=== PATIENT | female | born 1975 | race Caucasian/White ===

== ENCOUNTER 2017-02-05 03:03 | Emergency (ER) | payer MEDICAID ==
[~2017-02-05] VITALS: Ht 160 cm; Wt 71.0 kg
[2017-02-05] MEDS ORDERED: IBUPROFEN 800MG TABLET PO ONE (04:00)
[2017-02-05] MEDS ORDERED: IPRATROPIUM/ALBUTEROL 0.5-3(2.5)MG/3ML NEB HHN ONE (04:00)
[2017-02-05] MEDS ORDERED: PREDNISONE 20MG TABLET PO ONE (04:00)
[2017-02-05] MEDS ORDERED: AZITHROMYCIN 500 MG TABLET PO ONE (04:00)
[2017-02-05 06:30] VITALS: BP 117/63
== END 2017-02-05 06:32 | disposition home or self-care (01) ==
LOC: ER 03:03
DX: J02.9 Acute pharyngitis, unspecified (principal); J40 Bronchitis, not specified as acute or chronic; Z88.0 Allergy status to penicillin
CPT/HCPCS: 71010; 81025; 94640; 99284; J7512; Z7610; J7620

== ENCOUNTER 2019-07-09 16:16 | Observation (INO) | payer MEDICAID ==
[~2019-07-09] VITALS: Ht 157.5 cm; Wt 77.1 kg
== END 2019-07-09 18:30 | disposition home or self-care (01) ==
LOC: 8 EST LDRP 16:16
PROVIDERS: ADMIT Specialist; ATTEND Specialist
DX: O36.8130 Decreased fetal movements, third trimester, not applicable or unspecified (principal); Z3A.36 36 weeks gestation of pregnancy
CPT/HCPCS: 76815; 76818; 99281; G0378

== ENCOUNTER 2019-12-05 10:02 | Emergency (ER) | payer OTHER ==
[~2019-12-05] VITALS: Ht 157.5 cm; Wt 75.0 kg
[~2019-12-05 10:02] MED LIST: FERR325T6 MT; IBUP-2030 PO; PREN-55 MT
[2019-12-05] MEDS ORDERED: KETOROLAC 60MG/2ML VIAL IM STA (10:14)
[2019-12-05 11:12] VITALS: BP 115/77
== END 2019-12-05 11:13 | disposition home or self-care (01) ==
LOC: ER 10:02
DX: K02.9 Dental caries, unspecified (principal)
CPT/HCPCS: 81025; 99283; J1885

== ENCOUNTER 2021-01-17 09:37 | Emergency (ER) | payer OTHER ==
[~2021-01-17] VITALS: Ht 160 cm; Wt 77.0 kg
[2021-01-17 10:21] LABS: BASOPHILS % 0.6 % (0.0-2.0); EOSINOPHILS % 2.9 % (0.0-5.0); HEMATOCRIT. 38.4 % (36.0-48.0); HEMOGLOBIN. 13.5 g/dL (12.0-16.0); LYMPHOCYTES % 34.2 % (20.0-50.0); MEAN CORPUSCULAR HEMOGLOBIN 30.3 pg (28.0-32.0); MEAN CORPUSCULAR VOLUME 86.4 fL (81.0-99.0); MEAN PLATELET VOLUME 9.9 fl (7.4-10.4); MONOCYTES % 5.3 % (2.0-8.0); PLATELET 148 x1000/uL (130-400); RED BLOOD CELL COUNT 4.45 mill/uL (4.2-5.4); RED CELL DISTRIBUTION WIDTH 12.9 % (11.6-14.6)
[2021-01-17 10:26] LABS: CHLORIDE 109 mEq/L (98-107)
[2021-01-17 10:29] LABS: CLARITY URINE CLOUDY (CLEAR); COLOR URINE YELLOW (YELLOW); KETONES URINE NEGATIVE (NEGATIVE); LEUKOCYTE ESTERASE URINE 1+ (NEGATIVE); NITRITE URINE NEGATIVE (NEGATIVE); OCCULT BLOOD URINE TRACE (NEGATIVE); PROTEIN URINE NEGATIVE (NEGATIVE); SPECIFIC GRAVITY URINE 1.021 (1.005-1.030); UROBILINOGEN URINE 0.2 E.U./dL (0.2-1.0)
[2021-01-17 10:40] LABS: UCG SCREEN NEGATIVE
[2021-01-17 10:49] LABS: HCG SCREEN NEGATIVE
[2021-01-17] MEDS ORDERED: ASPIRIN 325MG EC TABLET PO ONE (11:00)
[2021-01-17] MEDS ORDERED: CEPH500C2 MT (13:51)
[2021-01-17] MEDS ORDERED: KETOROLAC 15MG/ML VIAL IV ONE (14:00)
[2021-01-17 15:58] VITALS: BP 98/55
== END 2021-01-17 16:05 | disposition home or self-care (01) ==
LOC: ER 09:37
DX: R07.89 Other chest pain (principal); R06.02 Shortness of breath; Z20.822 Contact with and (suspected) exposure to COVID-19
CPT/HCPCS: 36415; 71045; 80053; 81003; 81025; 83880; 84484; 84703; 85025; 87086; 93005; 96374; 99285; C9803; J1885; U0003; U0005

== ENCOUNTER 2021-01-23 10:37 | Emergency (ER) | payer OTHER ==
[~2021-01-23] VITALS: Ht 167.6 cm; Wt 81.0 kg
[~2021-01-23 10:37] MED LIST changes: +CEPH500C2 MT
[2021-01-23 11:19] LABS: BASOPHILS % 0.6 % (0.0-2.0); EOSINOPHILS % 3.1 % (0.0-5.0); HEMATOCRIT. 38.8 % (36.0-48.0); HEMOGLOBIN. 13.9 g/dL (12.0-16.0); LYMPHOCYTES % 30.8 % (20.0-50.0); MEAN CORPUSCULAR HEMOGLOBIN 30.7 pg (28.0-32.0); MONOCYTES % 5.4 % (2.0-8.0); NEUTROPHILS % 60.1 % (40.0-76.0); PLATELET 147 x1000/uL (130-400); RED BLOOD CELL COUNT 4.51 mill/uL (4.2-5.4); RED CELL DISTRIBUTION WIDTH 12.5 % (11.6-14.6)
[2021-01-23 11:30] LABS: CHLORIDE 108 mEq/L (98-107)
[2021-01-23 11:35] LABS: HCG SCREEN NEGATIVE
[2021-01-23 11:36] LABS: ETHANOL BLOOD < 10 mg/dL
[2021-01-23 12:16] LABS: CLARITY URINE CLEAR (CLEAR); COLOR URINE YELLOW (YELLOW); KETONES URINE NEGATIVE (NEGATIVE); LEUKOCYTE ESTERASE URINE NEGATIVE (NEGATIVE); NITRITE URINE NEGATIVE (NEGATIVE); OCCULT BLOOD URINE 1+ (NEGATIVE); PROTEIN URINE NEGATIVE (NEGATIVE); UROBILINOGEN URINE 0.2 E.U./dL (0.2-1.0)
[2021-01-23] MEDS ORDERED: KETOROLAC 15MG/ML VIAL IV ONE (12:30)
[2021-01-23] MEDS ORDERED: ONDANSETRON HCL 4MG/2ML INJ IV ONE (12:30)
[2021-01-23 12:52] LABS: *AMPHETAMINES SCREEN URINE NEGATIVE (NEGATIVE); *BARBITURATES SCREEN URINE NEGATIVE (NEGATIVE); *BENZODIAZEPINES SCREEN URINE NEGATIVE (NEGATIVE); *COCAINE SCREEN URINE NEGATIVE (NEGATIVE); METHADONE URINE SCREEN NEGATIVE (NEGATIVE); OPIATES URINE SCREEN NEGATIVE (NEGATIVE)
[2021-01-23 12:53] LABS: CANNABINOID URINE SCREEN NEGATIVE (NEGATIVE); PHENCYCLIDINE URINE SCREEN NEGATIVE (NEGATIVE)
[2021-01-23] MEDS ORDERED: SODIUM CHLORIDE 0.9% 1,000 ML IV ONE (13:00)
[2021-01-23 15:00] VITALS: BP 124/76
== END 2021-01-23 15:40 | disposition home or self-care (01) ==
LOC: ER 10:37
DX: R51.9 Headache, unspecified (principal); R07.89 Other chest pain; Z79.899 Other long term (current) drug therapy
CPT/HCPCS: 36415; 71045; 80053; 80305; 80320; 81003; 81025; 83690; 83880; 84484; 84703; 85025; 93005; 96374; 96375; 99285; J1885; J2405; G0480